=== PATIENT | female | born 1970 | race Caucasian/White ===

== ENCOUNTER 2017-10-14 13:01 | Emergency (ER) | payer MEDICAID ==
[~2017-10-14] VITALS: Ht 193859 cm; Wt 104.9 kg
[~2017-10-14 13:01] MED LIST: NO HOME MEDS
[2017-10-14 14:33] LABS: BASOPHILS # (AUTO) 0.2 X10'3 (0-0.2); BASOPHILS % (AUTO) 1.3 % (0-1); EOSINOPHILS # (AUTO) 0.1 X10'3 (0-0.9); EOSINOPHILS % (AUTO) 1.1 % (0-6); HEMATOCRIT 42.2 % (35.0-45.0); HEMOGLOBIN 14.7 g/dl (12.0-16.0); LYMPHOCYTES # (AUTO) 2.8 X10'3 (1.1-4.8); LYMPHOCYTES % (AUTO) 22.8 % (21-51); MEAN CORPUSCULAR HGB CONC 34.9 % (33.0-36.5); MEAN PLATELET VOLUME 7.9 FL (7.4-10.4); MONOCYTES % (AUTO) 8.6 % (2-12); NEUTROPHILS % (AUTO) 66.2 % (42-75); PLATELET COUNT 284 X10'3 (140-440); RED CELL DISTRIBUTION WIDTH 13.3 % (11.5-14.5); WHITE BLOOD COUNT 12.1 X10'3 (4.5-11.0)
[2017-10-14] MEDS ORDERED: normal saline 1000ML IV soln IVB ONE (14:35)
[2017-10-14 14:47] LABS: PARTIAL THROMBOPLASTIN TIME 27 SECONDS (22-32); PROTHROMBIN TIME 10.6 SECONDS (9.0-12.0)
[2017-10-14 14:57] LABS: ALANINE AMINOTRANSFERASE 24 U/L (12-78); ALBUMIN 4.1 G/DL (3.4-5.0); ALBUMIN/GLOBULIN RATIO 1.2 (1.1-1.5); ALKALINE PHOSPHATASE 71 IU/L (46-116); ANION GAP 13 (8-16); ASPARTATE AMINO TRANSFERASE 20 U/L (10-37); BILIRUBIN,TOTAL 2.4 MG/DL (0.1-1.0); BLOOD UREA NITROGEN 13 MG/DL (7-18); CALCIUM 8.8 MG/DL (8.5-10.1); CHLORIDE 103 MMOL/L (99-107); CREATININE 1.18 MG/DL (0.40-0.90); GLUCOSE 113 MG/DL (70-104); POTASSIUM 3.3 MMOL/L (3.5-5.1); SODIUM 142 MMOL/L (135-145); TOTAL CARBON DIOXIDE 26.2 MMOL/L (24-32); TOTAL PROTEIN 7.5 G/DL (6.4-8.2); eGFR 50 ML/MIN
[2017-10-14 15:11] LABS: ETHANOL < 0.010 GM/DL (0.0-0.010)
[2017-10-14] MEDS ORDERED: LORazepam 2 mg/ml vial IV ONE (15:20)
[2017-10-14] MEDS ORDERED: LORazepam 1 MG tablet PO ONE (15:30)
[2017-10-14 16:18] LABS: URINE HCG NEGATIVE (NEG)
[2017-10-14 16:20] LABS: CLARITY,URINE Cloudy (Clear); COLOR,URINE Dark Yellow (Yellow); GLUCOSE, URINE Negative (Neg); KETONES,URINE 40 mg/dl (Neg); LEUKOCYTE ESTERASE ,URINE Small (Neg); NITRITES, URINE Negative (Neg); OCCULT BLOOD,URINE Trace (Neg); PROTEIN,URINE Trace mg/dl (Neg)
[2017-10-14 16:26] LABS: UA COLLECTION TYPE CLN CATCH MIDSTREAM
[2017-10-14 16:30] LABS: BACTERIA,URINE 1+ /HPF (Neg); HYALINE CASTS 0-3 /LPF (NEGATIVE); MUCUS STRANDS MODERATE /LPF (Neg); RBC,URINE 0-2 /HPF (0-2); SQUAMOUS EPITHELIAL CELL,UR MODERATE /LPF (FEW); URINE AMPHETAMINE SCREEN POSITIVE (Neg); URINE BARBITUATE SCREEN NEGATIVE (Neg); URINE BENZODIAZEPINES SCREEN NEGATIVE (Neg); URINE CANNABINOID SCREEN POSITIVE (Neg); URINE COCAINE SCREEN NEGATIVE (Neg); URINE METHADONE SCREEN NEGATIVE (Neg); URINE OPIATE SCREEN NEGATIVE (Neg); URINE PHENCYCLIDINE SCREEN NEGATIVE (Neg); WBC,URINE 0-4 /HPF (0-4)
[2017-10-14 16:31] LABS: COARSE GRANULAR CAST 0-3 /LPF (NEGATIVE)
[2017-10-14] MEDS ORDERED: ziprasidone 20mg capsule PO PRN (20:35)
[2017-10-14] MEDS ORDERED: LORazepam 2 mg/ml vial IM PRN (20:35)
[2017-10-14] MEDS ORDERED: ziprasidone IM 20mg inj **IM only IM PRN (20:35)
[2017-10-14] MEDS: quetiapine 100mg tablet PO SCH (21:15)
[2017-10-15] MEDS: nitrofuran/nitrofuran macrocrysal 100 MG capsule PO SCH ×2 (11:50→20:46)
[2017-10-15] MEDS: quetiapine 100mg tablet PO SCH (20:46)
[2017-10-16] MEDS: nitrofuran/nitrofuran macrocrysal 100 MG capsule PO SCH ×2 (07:43→20:00)
[2017-10-16] MEDS: LORazepam 1 MG tablet PO PRN (12:12)
[2017-10-16] MEDS: quetiapine 100mg tablet PO SCH (20:32)
[2017-10-17] MEDS: LORazepam 1 MG tablet PO PRN (05:17)
[2017-10-17] MEDS: nitrofuran/nitrofuran macrocrysal 100 MG capsule PO SCH (08:00)
[2017-10-17 17:59] VITALS: BP 102/48
== END 2017-10-17 20:05 ==
LOC: ER 13:02
DX: F31.9 Bipolar disorder, unspecified (principal); F15.90 Other stimulant use, unspecified, uncomplicated; F20.9 Schizophrenia, unspecified; F12.90 Cannabis use, unspecified, uncomplicated; Z60.2 Problems related to living alone; Z59.0 Homelessness; Z90.49 Acquired absence of other specified parts of digestive tract; Z90.710 Acquired absence of both cervix and uterus
CPT/HCPCS: 36415; 71045; 80053; 80305; 80320; 81001; 81025; 83735; 84145; 84443; 85025; 85610; 85730; 87088; 93005; 99285; J2060; J3486; 96372

== ENCOUNTER 2017-10-30 21:50 | Emergency (ER) | payer MEDICAID ==
[~2017-10-30] VITALS: Ht 180.3 cm; Wt 109.8 kg
[2017-10-30] MEDS ORDERED: LORazepam 1 MG tablet PO ONE (22:20)
[2017-10-30 22:43] VITALS: BP 145/80
== END 2017-10-30 22:45 | disposition home or self-care (01) ==
LOC: ER 21:50
DX: F41.9 Anxiety disorder, unspecified (principal); F31.9 Bipolar disorder, unspecified; F20.9 Schizophrenia, unspecified; G89.29 Other chronic pain; F12.10 Cannabis abuse, uncomplicated; Z90.49 Acquired absence of other specified parts of digestive tract; Z90.710 Acquired absence of both cervix and uterus; Z87.442 Personal history of urinary calculi; Z60.2 Problems related to living alone; Z59.0 Homelessness; Z88.8 Allergy status to other drugs, medicaments and biological substances
CPT/HCPCS: 99284

== ENCOUNTER 2017-11-03 18:48 | Emergency (ER) | payer MEDICAID ==
[~2017-11-03] VITALS: Ht 177.8 cm; Wt 104.5 kg
[2017-11-03 20:23] VITALS: BP 132/69
[2017-11-03 20:24] LABS: URINE AMPHETAMINE SCREEN POSITIVE (Neg); URINE BARBITUATE SCREEN NEGATIVE (Neg); URINE BENZODIAZEPINES SCREEN NEGATIVE (Neg); URINE CANNABINOID SCREEN POSITIVE (Neg); URINE COCAINE SCREEN NEGATIVE (Neg); URINE METHADONE SCREEN NEGATIVE (Neg); URINE OPIATE SCREEN NEGATIVE (Neg); URINE PHENCYCLIDINE SCREEN NEGATIVE (Neg)
[2017-11-03 20:25] LABS: CLARITY,URINE CLEAR (Clear); COLOR,URINE YELLOW (Yellow); GLUCOSE, URINE NEGATIVE (Neg); KETONES,URINE NEGATIVE (Neg); LEUKOCYTE ESTERASE ,URINE NEGATIVE (Neg); NITRITES, URINE NEGATIVE (Neg); OCCULT BLOOD,URINE NEGATIVE (Neg); PH,URINE 5.5 (4.8-8.0); PROTEIN,URINE NEGATIVE (Neg); UA COLLECTION TYPE CLN CATCH MIDSTREAM; UROBILINOGEN,URINE 0.2 E.U/dL (0.2-1.0)
== END 2017-11-03 20:25 | disposition left against medical advice (07) ==
LOC: ER 18:49
DX: F41.9 Anxiety disorder, unspecified (principal); Z53.21 Procedure and treatment not carried out due to patient leaving prior to being seen by health care provider
CPT/HCPCS: 80305; 81003; 99281

== ENCOUNTER 2017-11-20 09:25 | Emergency (ER) | payer MEDICAID ==
[~2017-11-20] VITALS: Ht 177.8 cm; Wt 105.9 kg
[2017-11-20 09:35] VITALS: BP 118/85
[2017-11-20] MEDS ORDERED: ACET-812 PO (10:13)
[2017-11-20] MEDS ORDERED: ONDA4TAB9 SL (10:13)
[2017-11-20] MEDS ORDERED: acetaminophen 325mg tablet PO ONE (10:15)
[2017-11-20] MEDS ORDERED: ondansetron 4mg rapidly disintigrating tab PO ONE (10:15)
== END 2017-11-20 10:30 | disposition home or self-care (01) ==
LOC: ER 09:26
DX: R51 Headache (principal); R11.0 Nausea; G89.29 Other chronic pain; F12.10 Cannabis abuse, uncomplicated; Z87.442 Personal history of urinary calculi; Z90.49 Acquired absence of other specified parts of digestive tract; Z90.710 Acquired absence of both cervix and uterus; Z56.0 Unemployment, unspecified; Z60.2 Problems related to living alone; Z88.8 Allergy status to other drugs, medicaments and biological substances; Z79.899 Other long term (current) drug therapy; Z59.0 Homelessness
CPT/HCPCS: 99283

== ENCOUNTER 2017-12-07 15:00 | Emergency (ER) | payer MEDICAID ==
[~2017-12-07] VITALS: Ht 180.3 cm; Wt 79.2 kg
[~2017-12-07 15:00] MED LIST changes: +ACET-812 PO
[2017-12-07 15:16] VITALS: BP 129/74
== END 2017-12-07 15:50 | disposition home or self-care (01) ==
LOC: ER 15:00
DX: Z00.8 Encounter for other general examination (principal); G89.29 Other chronic pain; F12.10 Cannabis abuse, uncomplicated; Z88.8 Allergy status to other drugs, medicaments and biological substances; Z60.2 Problems related to living alone; Z59.0 Homelessness
CPT/HCPCS: 99281

== ENCOUNTER 2018-01-19 07:56 | Emergency (ER) | payer MEDICAID ==
[~2018-01-19] VITALS: Ht 172.7 cm; Wt 80.0 kg
[~2018-01-19 07:56] MED LIST changes: -ACET-812 PO
[2018-01-19] MEDS ORDERED: metoclopramide 5 mg/ml inj IV ONE (08:05)
[2018-01-19] MEDS ORDERED: LORazepam 2 mg/ml vial IV ONE (08:05)
[2018-01-19] MEDS ORDERED: normal saline 1000ML IV soln IVB ONE (08:05)
[2018-01-19] MEDS ORDERED: SUMAtriptan succ. 6 MG/0.5ml vial SQ ONE (08:55)
[2018-01-19] MEDS ORDERED: ketorolac trometh. 30mg/ml inj. IV ONE (08:55)
[2018-01-19 08:57] VITALS: BP 104/66
== END 2018-01-19 09:47 | disposition home or self-care (01) ==
LOC: ER 07:56
DX: G43.909 Migraine, unspecified, not intractable, without status migrainosus (principal); G89.29 Other chronic pain; F12.10 Cannabis abuse, uncomplicated; Z87.442 Personal history of urinary calculi; Z90.49 Acquired absence of other specified parts of digestive tract; Z90.710 Acquired absence of both cervix and uterus; Z60.2 Problems related to living alone; Z59.0 Homelessness; Z88.8 Allergy status to other drugs, medicaments and biological substances
CPT/HCPCS: 70450; 96361; 96372; 96374; 96375; 99284; J1885; J2060; J2765; J3030; J7030

== ENCOUNTER 2018-01-30 14:07 | Emergency (ER) | payer MEDICAID ==
[~2018-01-30] VITALS: Ht 177.8 cm; Wt 87.5 kg
[2018-01-30 14:09] VITALS: BP 122/46
== END 2018-01-30 15:13 | disposition left against medical advice (07) ==
LOC: ER 14:07
DX: R52 Pain, unspecified (principal); Z53.21 Procedure and treatment not carried out due to patient leaving prior to being seen by health care provider

== ENCOUNTER 2018-01-30 16:47 | Emergency (ER) | payer MEDICAID ==
[~2018-01-30] VITALS: Ht 177.8 cm; Wt 87.3 kg
[2018-01-30 16:52] VITALS: BP 130/89
== END 2018-01-30 17:19 | disposition home or self-care (01) ==
LOC: ER 16:47
DX: F41.9 Anxiety disorder, unspecified (principal); G89.29 Other chronic pain; F31.9 Bipolar disorder, unspecified; F20.9 Schizophrenia, unspecified; F12.90 Cannabis use, unspecified, uncomplicated; Z59.0 Homelessness; Z90.49 Acquired absence of other specified parts of digestive tract; Z87.442 Personal history of urinary calculi; Z90.710 Acquired absence of both cervix and uterus; Z88.8 Allergy status to other drugs, medicaments and biological substances
CPT/HCPCS: 99284

== ENCOUNTER 2018-02-25 00:33 | Emergency (ER) | payer MEDICAID ==
[~2018-02-25] VITALS: Ht 177.8 cm; Wt 104.5 kg
[2018-02-25 00:34] VITALS: BP 118/91
== END 2018-02-25 00:57 | disposition left against medical advice (07) ==
LOC: ER 00:33
DX: G43.909 Migraine, unspecified, not intractable, without status migrainosus (principal); F17.200 Nicotine dependence, unspecified, uncomplicated; F12.90 Cannabis use, unspecified, uncomplicated; G89.29 Other chronic pain; Z90.49 Acquired absence of other specified parts of digestive tract; Z90.710 Acquired absence of both cervix and uterus; Z88.8 Allergy status to other drugs, medicaments and biological substances; Z79.899 Other long term (current) drug therapy; Z60.2 Problems related to living alone; Z59.0 Homelessness
CPT/HCPCS: 99281

== ENCOUNTER 2018-03-07 18:36 | Emergency (ER) | payer MEDICAID ==
[~2018-03-07] VITALS: Ht 1686.6 cm; Wt 95.5 kg
[2018-03-07 20:42] LABS: BASOPHILS # (AUTO) 0.1 X10'3 (0-0.2); BASOPHILS % (AUTO) 0.9 % (0-1); EOSINOPHILS # (AUTO) 0.2 X10'3 (0-0.9); EOSINOPHILS % (AUTO) 1.8 % (0-6); HEMATOCRIT 42.1 % (35.0-45.0); HEMOGLOBIN 14.7 g/dl (12.0-16.0); LYMPHOCYTES # (AUTO) 3.1 X10'3 (1.1-4.8); LYMPHOCYTES % (AUTO) 35.2 % (21-51); MEAN CORPUSCULAR HEMOGLOBIN 30.4 PG (27.0-31.0); MEAN CORPUSCULAR HGB CONC 34.9 % (33.0-36.5); MEAN CORPUSCULAR VOLUME 87.2 FL (78-98); MEAN PLATELET VOLUME 7.8 FL (7.4-10.4); MONOCYTES % (AUTO) 10.7 % (2-12); NEUTROPHILS # (AUTO) 4.6 X10'3 (1.8-7.7); NEUTROPHILS % (AUTO) 51.4 % (42-75); PLATELET COUNT 311 X10'3 (140-440); RED BLOOD COUNT 4.82 X10'6 (4.20-5.60); RED CELL DISTRIBUTION WIDTH 13.7 % (11.5-14.5); WHITE BLOOD COUNT 8.9 X10'3 (4.5-11.0)
[2018-03-07 20:56] LABS: ALANINE AMINOTRANSFERASE 27 U/L (12-78); ALBUMIN/GLOBULIN RATIO 1.2 (1.1-1.5); ALKALINE PHOSPHATASE 69 IU/L (46-116); ANION GAP 11 (8-16); ASPARTATE AMINO TRANSFERASE 27 U/L (10-37); BLOOD UREA NITROGEN 19 MG/DL (7-18); CHLORIDE 103 MMOL/L (99-107); CREATININE 0.95 MG/DL (0.40-0.90); GLUCOSE 108 MG/DL (70-104); POTASSIUM 3.2 MMOL/L (3.5-5.1); SODIUM 142 MMOL/L (135-145); TOTAL PROTEIN 7.3 G/DL (6.4-8.2); eGFR 64 ML/MIN
[2018-03-07 21:06] LABS: ACETAMINOPHEN < 2.0 UG/ML (10-30); ETHANOL < 0.010 GM/DL (0.0-0.010)
[2018-03-08] MEDS ORDERED: ziprasidone 20mg capsule PO PRN (01:05)
[2018-03-08] MEDS ORDERED: LORazepam 2 mg/ml vial IM ONE (07:15)
[2018-03-08] MEDS: ziprasidone IM 20mg inj **IM only IM PRN ×2 (07:34→19:48)
[2018-03-08 17:10] LABS: URINE HCG NEGATIVE (NEG)
[2018-03-08 17:12] LABS: CLARITY,URINE CLEAR (Clear); COLOR,URINE YELLOW (Yellow); GLUCOSE, URINE NEGATIVE (Neg); KETONES,URINE NEGATIVE (Neg); LEUKOCYTE ESTERASE ,URINE NEGATIVE (Neg); NITRITES, URINE NEGATIVE (Neg); OCCULT BLOOD,URINE TRACE-INTACT (Neg); PH,URINE 5.5 (4.8-8.0); PROTEIN,URINE NEGATIVE (Neg); UROBILINOGEN,URINE 0.2 E.U/dL (0.2-1.0)
[2018-03-08 17:14] LABS: UA COLLECTION TYPE CLN CATCH MIDSTREAM
[2018-03-08 17:17] LABS: MUCUS STRANDS MANY /LPF (Neg); SQUAMOUS EPITHELIAL CELL,UR MANY /LPF (FEW); WBC,URINE 0-4 /HPF (0-4)
[2018-03-08 17:18] LABS: CAL OXALATE CRYSTALS 1+ /HPF (NEGATIVE)
[2018-03-08 17:19] LABS: BACTERIA,URINE FEW /HPF (Neg); RBC,URINE 0-2 /HPF (0-2)
[2018-03-08 17:23] LABS: URINE AMPHETAMINE SCREEN POSITIVE (Neg); URINE BARBITUATE SCREEN NEGATIVE (Neg); URINE BENZODIAZEPINES SCREEN NEGATIVE (Neg); URINE CANNABINOID SCREEN POSITIVE (Neg); URINE COCAINE SCREEN NEGATIVE (Neg); URINE METHADONE SCREEN NEGATIVE (Neg); URINE OPIATE SCREEN NEGATIVE (Neg); URINE PHENCYCLIDINE SCREEN NEGATIVE (Neg)
[2018-03-09] MEDS: ziprasidone IM 20mg inj **IM only IM PRN ×2 (08:11→20:18)
[2018-03-10] MEDS: ziprasidone IM 20mg inj **IM only IM PRN ×2 (08:08→20:09)
[2018-03-11] MEDS ORDERED: acetaminophen 325mg tablet PO PRN (06:45)
[2018-03-11] MEDS: ziprasidone IM 20mg inj **IM only IM PRN (07:03)
[2018-03-11] MEDS ORDERED: OLANZapine 5mg rapidly disint. tablet PO PRN (09:40)
[2018-03-11] MEDS ORDERED: aripiprazole 5mg tablet PO SCH (09:40)
[2018-03-11] MEDS ORDERED: OLANZapine **IM** 10 mg inj. IM PRN (09:40)
[2018-03-11 18:02] VITALS: BP 103/55
== END 2018-03-11 19:27 | disposition home or self-care (01) ==
LOC: ER 18:36
DX: F32.9 Major depressive disorder, single episode, unspecified (principal); R45.851 Suicidal ideations; F12.90 Cannabis use, unspecified, uncomplicated; F15.90 Other stimulant use, unspecified, uncomplicated; F41.9 Anxiety disorder, unspecified; F20.9 Schizophrenia, unspecified; G89.29 Other chronic pain; G43.909 Migraine, unspecified, not intractable, without status migrainosus; Z88.8 Allergy status to other drugs, medicaments and biological substances; Z90.49 Acquired absence of other specified parts of digestive tract; Z90.710 Acquired absence of both cervix and uterus; Z59.0 Homelessness; Z60.2 Problems related to living alone
CPT/HCPCS: 36415; 80053; 80305; 80320; 80329; 81001; 81025; 84443; 85025; 96372; 99285; J2060; J3486

== ENCOUNTER 2018-05-27 09:39 | Emergency (ER) | payer MEDICAID ==
[~2018-05-27] VITALS: Ht 177.8 cm; Wt 86.4 kg
[2018-05-27] MEDS ORDERED: SUMAtriptan succ. 6 MG/0.5ml vial SQ ONE (09:55)
[2018-05-27] MEDS ORDERED: ondansetron 4mg rapidly disintigrating tab PO ONE (09:55)
[2018-05-27] MEDS ORDERED: diphenhydrAMINE 50 mg/ml inj IM ONE (09:55)
[2018-05-27 10:56] VITALS: BP 142/84
== END 2018-05-27 10:55 | disposition home or self-care (01) ==
LOC: ER 09:39
DX: R51 Headache (principal); G89.29 Other chronic pain; F12.90 Cannabis use, unspecified, uncomplicated; F15.90 Other stimulant use, unspecified, uncomplicated; Z90.49 Acquired absence of other specified parts of digestive tract; Z90.710 Acquired absence of both cervix and uterus; Z98.890 Other specified postprocedural states; Z60.2 Problems related to living alone; Z59.0 Homelessness; Z88.8 Allergy status to other drugs, medicaments and biological substances
CPT/HCPCS: 96372; 99284; J1200; J3030

== ENCOUNTER 2018-06-09 09:44 | Emergency (ER) | payer MEDICAID ==
[~2018-06-09] VITALS: Ht 177.8 cm; Wt 113.6 kg
[2018-06-09 09:52] VITALS: BP 125/76
[2018-06-09] MEDS ORDERED: ibuprofen tablet 400 MG TABLET PO ONE (10:00)
[2018-06-09] MEDS ORDERED: IBUP-1986 PO (10:01)
== END 2018-06-09 10:29 | disposition home or self-care (01) ==
LOC: ER 09:45
DX: M79.10 Myalgia, unspecified site (principal); G43.909 Migraine, unspecified, not intractable, without status migrainosus; G89.29 Other chronic pain; F12.90 Cannabis use, unspecified, uncomplicated; F15.90 Other stimulant use, unspecified, uncomplicated; F17.210 Nicotine dependence, cigarettes, uncomplicated; Z90.49 Acquired absence of other specified parts of digestive tract; Z90.710 Acquired absence of both cervix and uterus; Z88.8 Allergy status to other drugs, medicaments and biological substances; Z79.899 Other long term (current) drug therapy; Z60.2 Problems related to living alone; Z59.0 Homelessness
CPT/HCPCS: 99282

== ENCOUNTER 2018-07-21 13:38 | Emergency (ER) | payer MEDICAID ==
[~2018-07-21] VITALS: Ht 177.8 cm; Wt 98.1 kg
[~2018-07-21 13:38] MED LIST changes: +IBUP-1986 PO
[2018-07-21 13:53] VITALS: BP 132/85
[2018-07-21] MEDS ORDERED: OLAN5TAB3 PO (14:24)
[2018-07-21] MEDS ORDERED: ONDA8TAB9 PO (14:24)
== END 2018-07-21 15:19 | disposition home or self-care (01) ==
LOC: ER 13:38
DX: F20.9 Schizophrenia, unspecified (principal); Z76.0 Encounter for issue of repeat prescription; G43.909 Migraine, unspecified, not intractable, without status migrainosus; G89.29 Other chronic pain; F12.90 Cannabis use, unspecified, uncomplicated; F15.90 Other stimulant use, unspecified, uncomplicated; F32.9 Major depressive disorder, single episode, unspecified; F41.9 Anxiety disorder, unspecified; Z88.8 Allergy status to other drugs, medicaments and biological substances; Z79.899 Other long term (current) drug therapy; Z90.49 Acquired absence of other specified parts of digestive tract; Z90.710 Acquired absence of both cervix and uterus; Z60.2 Problems related to living alone; Z59.0 Homelessness
CPT/HCPCS: 99283

== ENCOUNTER → 2018-08-03 | Emergency (ER) | payer MEDICAID ==
[~2018-08-03] MED LIST changes: +OLAN5TAB3 PO; +ONDA8TAB9 PO
== END | disposition left against medical advice (07) ==
LOC: ER 07:51
DX: S30.0XXA Contusion of lower back and pelvis, initial encounter (principal); R10.9 Unspecified abdominal pain; M79.605 Pain in left leg; M79.604 Pain in right leg; R51 Headache; G89.29 Other chronic pain; F12.90 Cannabis use, unspecified, uncomplicated; F15.90 Other stimulant use, unspecified, uncomplicated; Z90.49 Acquired absence of other specified parts of digestive tract; Z90.710 Acquired absence of both cervix and uterus; Z98.890 Other specified postprocedural states; Z60.2 Problems related to living alone; Z59.0 Homelessness; Z88.8 Allergy status to other drugs, medicaments and biological substances; Z79.899 Other long term (current) drug therapy; T74.21XA Adult sexual abuse, confirmed, initial encounter; Y93.89 Activity, other specified; Y92.89 Other specified places as the place of occurrence of the external cause; Y99.8 Other external cause status
CPT/HCPCS: 99283

== ENCOUNTER 2018-08-11 15:26 | Emergency (ER) | payer MEDICAID | END 2018-08-11 18:19 | disposition left against medical advice (07) | LOC: ER 15:27 | DX: R25.1 Tremor, unspecified (principal); Z53.21 Procedure and treatment not carried out due to patient leaving prior to being seen by health care provider ==

== ENCOUNTER 2018-09-09 06:43 | Emergency (ER) | payer MEDICAID ==
[~2018-09-09] VITALS: Ht 177.8 cm; Wt 100.0 kg
[2018-09-09 06:50] VITALS: BP 120/93
--- NOTE | 2018-09-09 07:10 | NUR ---
PT REQUESTING DIAPER DUE TO INCONTINENCE. BRING COMMODE INTO ROOM AND PT IS TAKING OFF CLOTHES AND GETTING INTO A GOWN.
[2018-09-09] MEDS ORDERED: butalbital/acetaminophen/caffeine (Fioricet) tablet PO ONE (07:15)
--- NOTE | 2018-09-09 08:00 | NUR ---
PT REFUSES HEADACHE MEDICATION, NOTIFY , PT REQUESTING TYLENOL ONLY. VERBAL ORDER TO ORDER.
[2018-09-09] MEDS ORDERED: acetaminophen 325mg tablet PO ONE (08:05)
[2018-09-09 08:13] LABS: CLARITY,URINE SLIGHTLY CLOUDY (Clear); COLOR,URINE YELLOW (Yellow); GLUCOSE, URINE NEGATIVE (Neg); KETONES,URINE NEGATIVE (Neg); LEUKOCYTE ESTERASE ,URINE SMALL (Neg); NITRITES, URINE NEGATIVE (Neg); OCCULT BLOOD,URINE NEGATIVE (Neg); PH,URINE 5.5 (4.8-8.0); PROTEIN,URINE NEGATIVE (Neg); URINE HCG NEGATIVE (NEG); UROBILINOGEN,URINE 0.2 E.U/dL (0.2-1.0)
[2018-09-09 08:18] LABS: BASOPHILS % (AUTO) 0.7 % (0-1); EOSINOPHILS # (AUTO) 0.1 X10'3 (0-0.9); EOSINOPHILS % (AUTO) 2.2 % (0-6); HEMATOCRIT 40.2 % (35.0-45.0); HEMOGLOBIN 13.4 g/dl (12.0-16.0); LYMPHOCYTES # (AUTO) 1.7 X10'3 (1.1-4.8); MEAN CORPUSCULAR HEMOGLOBIN 29.5 PG (27.0-31.0); MEAN CORPUSCULAR HGB CONC 33.3 % (33.0-36.5); MEAN CORPUSCULAR VOLUME 88.6 FL (78-98); MEAN PLATELET VOLUME 8.3 FL (7.4-10.4); MONOCYTES # (AUTO) 0.7 X10'3 (0-0.9); MONOCYTES % (AUTO) 10.3 % (2-12); NEUTROPHILS # (AUTO) 3.9 X10'3 (1.8-7.7); NEUTROPHILS % (AUTO) 60.8 % (42-75); PLATELET COUNT 247 X10'3 (140-440); RED BLOOD COUNT 4.54 X10'6 (4.20-5.60); RED CELL DISTRIBUTION WIDTH 14.3 % (11.5-14.5); WHITE BLOOD COUNT 6.4 X10'3 (4.5-11.0)
[2018-09-09 08:25] LABS: ALANINE AMINOTRANSFERASE 27 U/L (12-78); ALBUMIN 3.9 G/DL (3.4-5.0); ALBUMIN/GLOBULIN RATIO 1.1 (1.1-1.5); ALKALINE PHOSPHATASE 72 IU/L (46-116); ANION GAP 10 (8-16); ASPARTATE AMINO TRANSFERASE 20 U/L (10-37); BILIRUBIN,TOTAL 1.7 MG/DL (0.1-1.0); BLOOD UREA NITROGEN 6 MG/DL (7-18); BUN/CREATININE RATIO 8.2 (6.6-38.0); CALCIUM 8.4 MG/DL (8.5-10.1); CHLORIDE 101 MMOL/L (99-107); CREATININE 0.73 MG/DL (0.40-0.90); ETHANOL < 0.010 GM/DL (0.0-0.010); GLUCOSE 93 MG/DL (70-104); SODIUM 140 MMOL/L (135-145); TOTAL CARBON DIOXIDE 28.6 MMOL/L (24-32); TOTAL PROTEIN 7.4 G/DL (6.4-8.2); eGFR 86 ML/MIN
[2018-09-09 08:28] LABS: URINE AMPHETAMINE SCREEN POSITIVE (Neg); URINE BARBITUATE SCREEN NEGATIVE (Neg); URINE BENZODIAZEPINES SCREEN NEGATIVE (Neg); URINE CANNABINOID SCREEN POSITIVE (Neg); URINE COCAINE SCREEN NEGATIVE (Neg); URINE METHADONE SCREEN NEGATIVE (Neg); URINE OPIATE SCREEN NEGATIVE (Neg); URINE PHENCYCLIDINE SCREEN NEGATIVE (Neg)
[2018-09-09] MEDS ORDERED: potassium Cl 20 mEq SR tablet PO STA (08:41)
[2018-09-09 08:50] LABS: UA COLLECTION TYPE NON-SPECIFIED
[2018-09-09 08:51] LABS: BACTERIA,URINE FEW /HPF (Neg); MUCUS STRANDS FEW /LPF (Neg); RBC,URINE 0-2 /HPF (0-2); SQUAMOUS EPITHELIAL CELL,UR MANY /LPF (FEW); WBC,URINE 0-4 /HPF (0-4)
[2018-09-09] MEDS ORDERED: LORazepam 2 mg/ml vial IM ONE (09:35)
[2018-09-09] MEDS ORDERED: diphenhydrAMINE 50 mg/ml inj IM ONE (09:35)
--- NOTE | 2018-09-09 12:20 | NUR ---
Patient given a sack lunch and attends.
== END 2018-09-09 12:43 | disposition home or self-care (01) ==
LOC: ER 06:43
DX: F32.9 Major depressive disorder, single episode, unspecified (principal); F19.10 Other psychoactive substance abuse, uncomplicated; G43.909 Migraine, unspecified, not intractable, without status migrainosus; G89.29 Other chronic pain; F41.9 Anxiety disorder, unspecified; F20.9 Schizophrenia, unspecified; F12.90 Cannabis use, unspecified, uncomplicated; F15.90 Other stimulant use, unspecified, uncomplicated; Z59.0 Homelessness; Z90.49 Acquired absence of other specified parts of digestive tract; Z90.710 Acquired absence of both cervix and uterus; Z88.5 Allergy status to narcotic agent
CPT/HCPCS: 36415; 80053; 80305; 80320; 81001; 81025; 85025; 96372; 99284; J1200; J2060; 99283

== ENCOUNTER 2019-06-09 08:11 | Emergency (ER) | payer MEDICAID ==
[~2019-06-09] VITALS: Ht 177.8 cm; Wt 80.0 kg
[2019-06-09 08:13] VITALS: BP 113/70
== END 2019-06-09 08:57 | disposition left against medical advice (07) ==
LOC: ER 08:11
DX: R51 Headache (principal); F15.10 Other stimulant abuse, uncomplicated; Z53.21 Procedure and treatment not carried out due to patient leaving prior to being seen by health care provider

== ENCOUNTER 2019-10-11 14:06 | Emergency (ER) | payer MEDICAID ==
[~2019-10-11] VITALS: Ht 177.8 cm; Wt 73.0 kg
[2019-10-11 14:14] VITALS: BP 114/68
== END 2019-10-11 17:02 | disposition left against medical advice (07) ==
LOC: ER 14:06
DX: F41.9 Anxiety disorder, unspecified (principal); Z53.21 Procedure and treatment not carried out due to patient leaving prior to being seen by health care provider

== ENCOUNTER 2019-12-21 15:11 | Emergency (ER) | payer MEDICAID ==
[~2019-12-21] VITALS: Ht 177.8 cm; Wt 72.8 kg
[2019-12-21 15:12] VITALS: BP 119/69
[2019-12-21] MEDS ORDERED: ondansetron 4mg rapidly disintigrating tab PO ONE (15:30)
[2019-12-21] MEDS ORDERED: ketorolac trometh. 30mg/ml inj. IM ONE (15:30)
== END 2019-12-21 15:39 | disposition home or self-care (01) ==
LOC: ER 15:11
DX: G43.909 Migraine, unspecified, not intractable, without status migrainosus (principal); G89.29 Other chronic pain; F17.210 Nicotine dependence, cigarettes, uncomplicated; F12.90 Cannabis use, unspecified, uncomplicated; F15.90 Other stimulant use, unspecified, uncomplicated; Z87.442 Personal history of urinary calculi; Z59.0 Homelessness; Z90.49 Acquired absence of other specified parts of digestive tract; Z90.710 Acquired absence of both cervix and uterus; Z88.5 Allergy status to narcotic agent
CPT/HCPCS: 96372; 99283; J1885

== ENCOUNTER 2020-02-19 16:17 | Emergency (ER) | payer MEDICAID ==
[~2020-02-19] VITALS: Ht 180.3 cm; Wt 77.7 kg
[2020-02-19 16:24] VITALS: BP 111/70
[2020-02-19] MEDS ORDERED: IBUP-1984 PO (17:20)
[2020-02-19] MEDS ORDERED: CYCL-1 PO (17:20)
[2020-02-19] MEDS ORDERED: ketorolac tromethamine 15mg/ml inj. IM ONE (17:20)
== END 2020-02-19 17:35 | disposition home or self-care (01) ==
LOC: ER 16:17
DX: M54.2 Cervicalgia (principal); R42 Dizziness and giddiness; Y09 Assault by unspecified means; G43.909 Migraine, unspecified, not intractable, without status migrainosus; G89.29 Other chronic pain; F41.9 Anxiety disorder, unspecified; F31.9 Bipolar disorder, unspecified; F20.9 Schizophrenia, unspecified; F12.90 Cannabis use, unspecified, uncomplicated; F15.90 Other stimulant use, unspecified, uncomplicated; Z87.442 Personal history of urinary calculi; Z90.49 Acquired absence of other specified parts of digestive tract; Z90.710 Acquired absence of both cervix and uterus; Z98.890 Other specified postprocedural states; Z60.2 Problems related to living alone; Z59.0 Homelessness; Z88.8 Allergy status to other drugs, medicaments and biological substances; Z79.899 Other long term (current) drug therapy
CPT/HCPCS: 96372; 99284; J1885

== ENCOUNTER 2020-03-07 14:33 | Emergency (ER) | payer MEDICAID ==
[~2020-03-07] VITALS: Ht 180.3 cm; Wt 77.3 kg
[~2020-03-07 14:33] MED LIST changes: +CYCL-1 PO
[2020-03-07 14:37] VITALS: BP 106/64
--- NOTE | 2020-03-07 15:11 | NUR ---
Patient given toothbrush, toothpaste, and mouth wash.
[2020-03-07] MEDS ORDERED: traMADol 50MG tablet PO ONE (15:20)
== END 2020-03-07 15:27 | disposition home or self-care (01) ==
LOC: ER 14:33
DX: K02.9 Dental caries, unspecified (principal); G43.909 Migraine, unspecified, not intractable, without status migrainosus; F41.9 Anxiety disorder, unspecified; F31.9 Bipolar disorder, unspecified; F20.9 Schizophrenia, unspecified; G89.29 Other chronic pain; F12.90 Cannabis use, unspecified, uncomplicated; F15.90 Other stimulant use, unspecified, uncomplicated; Z87.442 Personal history of urinary calculi; Z90.49 Acquired absence of other specified parts of digestive tract; Z90.710 Acquired absence of both cervix and uterus; Z98.890 Other specified postprocedural states; Z59.0 Homelessness; Z60.2 Problems related to living alone; Z88.8 Allergy status to other drugs, medicaments and biological substances; Z79.899 Other long term (current) drug therapy
CPT/HCPCS: 99283

== ENCOUNTER 2020-03-10 09:14 | Emergency (ER) | payer MEDICAID ==
[~2020-03-10] VITALS: Ht 180.3 cm; Wt 75.6 kg
--- NOTE | 2020-03-10 09:35 | NUR ---
provider in with pt
[2020-03-10] MEDS ORDERED: ketorolac trometh. 30mg/ml inj. IV ONE (09:40)
[2020-03-10] MEDS ORDERED: normal saline 1000ML IV soln IVB ONE (09:40)
[2020-03-10] MEDS ORDERED: LORazepam 2 mg/ml vial IV ONE (09:40)
[2020-03-10] MEDS ORDERED: SUMAtriptan 5 mg Nasal Spray NS ONE (09:40)
[2020-03-10] MEDS ORDERED: SUMAtriptan 25 MG tablet PO ONE (09:50)
[2020-03-10 11:06] VITALS: BP 105/64
== END 2020-03-10 11:07 | disposition home or self-care (01) ==
LOC: ER 09:15
DX: G43.909 Migraine, unspecified, not intractable, without status migrainosus (principal); G89.29 Other chronic pain; F41.9 Anxiety disorder, unspecified; F31.9 Bipolar disorder, unspecified; F20.9 Schizophrenia, unspecified; F12.90 Cannabis use, unspecified, uncomplicated; F15.90 Other stimulant use, unspecified, uncomplicated; Z87.442 Personal history of urinary calculi; Z90.49 Acquired absence of other specified parts of digestive tract; Z90.710 Acquired absence of both cervix and uterus; Z98.890 Other specified postprocedural states; Z60.2 Problems related to living alone; Z59.0 Homelessness; Z88.8 Allergy status to other drugs, medicaments and biological substances; Z79.899 Other long term (current) drug therapy
CPT/HCPCS: 96374; 96375; 99284; J1885; J2060; J7030

== ENCOUNTER 2020-10-17 01:14 | Emergency (ER) | payer MEDICAID, OTHER ==
[~2020-10-17] VITALS: Ht 177.8 cm; Wt 75.0 kg
[2020-10-17] MEDS ORDERED: acetaminophen 325mg tablet PO ONE (01:45)
[2020-10-17] MEDS ORDERED: diphenhydrAMINE 50 mg/ml inj IV ONE (01:45)
[2020-10-17] MEDS ORDERED: ketorolac trometh. 30mg/ml inj. IV ONE (01:45)
[2020-10-17] MEDS ORDERED: normal saline 1000ml 1,000 ML IV ONE (01:45)
[2020-10-17] MEDS ORDERED: proCHLORperazine 10 MG/2 ml inj IV ONE (01:45)
[2020-10-17 06:26] VITALS: BP 133/72
== END 2020-10-17 06:28 | disposition home or self-care (01) ==
LOC: ER 01:14
DX: G43.909 Migraine, unspecified, not intractable, without status migrainosus (principal); G89.29 Other chronic pain; F31.9 Bipolar disorder, unspecified; F41.9 Anxiety disorder, unspecified; F12.90 Cannabis use, unspecified, uncomplicated; F15.90 Other stimulant use, unspecified, uncomplicated; F20.9 Schizophrenia, unspecified; Z90.49 Acquired absence of other specified parts of digestive tract; Z90.710 Acquired absence of both cervix and uterus; Z87.442 Personal history of urinary calculi; Z60.2 Problems related to living alone; Z59.0 Homelessness; Z88.8 Allergy status to other drugs, medicaments and biological substances; Z79.899 Other long term (current) drug therapy
CPT/HCPCS: 96361; 96374; 96375; 99284; J0780; J1200; J1885; J7030; 99285

== ENCOUNTER 2021-02-21 08:28 | Emergency (ER) | payer MEDICAID ==
[~2021-02-21] VITALS: Ht 177.8 cm; Wt 82.1 kg
[2021-02-21] MEDS ORDERED: proCHLORperazine 10 MG/2 ml inj IM ONE (09:20)
[2021-02-21] MEDS ORDERED: normal saline 1000ml 1,000 ML IV ONE (09:20)
[2021-02-21] MEDS ORDERED: diphenhydrAMINE 50 mg/ml inj IM ONE (09:20)
[2021-02-21] MEDS ORDERED: ketorolac trometh. 30mg/ml inj. IM ONE (09:20)
[2021-02-21 11:26] VITALS: BP 116/85
== END 2021-02-21 11:29 | disposition home or self-care (01) ==
LOC: ER 08:29
DX: G43.909 Migraine, unspecified, not intractable, without status migrainosus (principal); G89.29 Other chronic pain; F12.90 Cannabis use, unspecified, uncomplicated; F15.90 Other stimulant use, unspecified, uncomplicated; Z87.442 Personal history of urinary calculi; Z90.49 Acquired absence of other specified parts of digestive tract; Z90.710 Acquired absence of both cervix and uterus; Z59.0 Homelessness; Z88.8 Allergy status to other drugs, medicaments and biological substances; Z79.899 Other long term (current) drug therapy
CPT/HCPCS: 96360; 96372; 99284; J0780; J1200; J1885; J7030

== ENCOUNTER 2021-03-15 08:25 | Emergency (ER) | payer SELFPAY | END 2021-03-15 09:33 | disposition left against medical advice (07) | LOC: ER 08:26 | DX: R51.9 Headache, unspecified (principal); Z53.21 Procedure and treatment not carried out due to patient leaving prior to being seen by health care provider ==

== ENCOUNTER 2021-07-28 08:44 | Emergency (ER) | payer OTHER ==
[~2021-07-28] VITALS: Ht 177.8 cm; Wt 81.4 kg
[2021-07-28 09:02] VITALS: BP 119/86
[2021-07-28] MEDS ORDERED: AZIT-83 PO (09:09)
== END 2021-07-28 09:24 | disposition home or self-care (01) ==
LOC: ER 08:45
DX: R05.9 Cough, unspecified (principal); R09.89 Other specified symptoms and signs involving the circulatory and respiratory systems; R42 Dizziness and giddiness; G43.909 Migraine, unspecified, not intractable, without status migrainosus; G89.29 Other chronic pain; F41.9 Anxiety disorder, unspecified; F31.9 Bipolar disorder, unspecified; F20.9 Schizophrenia, unspecified; F12.90 Cannabis use, unspecified, uncomplicated; F15.90 Other stimulant use, unspecified, uncomplicated; Z87.442 Personal history of urinary calculi; Z90.49 Acquired absence of other specified parts of digestive tract; Z90.710 Acquired absence of both cervix and uterus; Z98.890 Other specified postprocedural states; Z60.2 Problems related to living alone; Z59.00 Homelessness unspecified; Z88.8 Allergy status to other drugs, medicaments and biological substances; Z79.2 Long term (current) use of antibiotics; Z79.899 Other long term (current) drug therapy
CPT/HCPCS: 99283

== ENCOUNTER 2022-02-02 07:22 | Emergency (ER) | payer MEDICAID ==
[~2022-02-02] VITALS: Ht 177.8 cm; Wt 81.8 kg
--- NOTE | 2022-02-02 07:50 | NUR ---
PT AWAITING ROOM AND OBSERVED IN LOBBY STICKING FINGER DOWN THROAT MAKING HERSELF GAG INTO EMESIS BAG.
[2022-02-02 08:17] LABS: URINE HCG NEGATIVE (NEG)
[2022-02-02 08:18] LABS: CLARITY,URINE CLOUDY (Clear); COLOR,URINE YELLOW (Yellow); GLUCOSE, URINE NEGATIVE (Neg); KETONES,URINE NEGATIVE (Neg); LEUKOCYTE ESTERASE ,URINE SMALL (Neg); NITRITES, URINE NEGATIVE (Neg); OCCULT BLOOD,URINE NEGATIVE (Neg); PH,URINE 5.5 (4.8-8.0); PROTEIN,URINE NEGATIVE (Neg); UROBILINOGEN,URINE 0.2 E.U/dL (0.2-1.0)
[2022-02-02 08:21] LABS: UA COLLECTION TYPE CLN CATCH MIDSTREAM
[2022-02-02 08:34] LABS: MUCUS STRANDS MANY /LPF (Neg); SQUAMOUS EPITHELIAL CELL,UR MANY /LPF (FEW)
[2022-02-02 08:36] LABS: BACTERIA,URINE 1+ /HPF (Neg); RBC,URINE 0-2 /HPF (0-2); WBC,URINE 0-4 /HPF (0-4)
[2022-02-02] MEDS ORDERED: SUMA25TA9 PO (09:57)
[2022-02-02 10:17] VITALS: BP 106/68
== END 2022-02-02 10:19 | disposition home or self-care (01) ==
LOC: ER 07:23
DX: G43.909 Migraine, unspecified, not intractable, without status migrainosus (principal); M54.2 Cervicalgia; R42 Dizziness and giddiness; G89.29 Other chronic pain; F41.9 Anxiety disorder, unspecified; F31.9 Bipolar disorder, unspecified; F20.9 Schizophrenia, unspecified; F17.200 Nicotine dependence, unspecified, uncomplicated; F12.90 Cannabis use, unspecified, uncomplicated; F15.90 Other stimulant use, unspecified, uncomplicated; Z87.442 Personal history of urinary calculi; Z90.49 Acquired absence of other specified parts of digestive tract; Z90.710 Acquired absence of both cervix and uterus; Z60.2 Problems related to living alone; Z59.00 Homelessness unspecified; Z88.8 Allergy status to other drugs, medicaments and biological substances; Z79.899 Other long term (current) drug therapy
CPT/HCPCS: 81001; 81025; 99283

== ENCOUNTER 2023-07-17 03:44 | Emergency (ER) | payer MEDICAID ==
[~2023-07-17] VITALS: Ht 177.8 cm; Wt 90.8 kg
[~2023-07-17 03:44] MED LIST changes: +SUMA25TA9 PO
[2023-07-17] MEDS ORDERED: acetaminophen 325mg tablet PO ONE (04:10)
[2023-07-17] MEDS ORDERED: ketorolac tromethamine 15mg/ml inj. IM ONE (04:10)
[2023-07-17 04:52] VITALS: BP 125/68; PULSE 60; RESP 16; TEMP 98.6; O2SAT 99
== END 2023-07-17 06:02 | disposition home or self-care (01) ==
LOC: ER 03:45
DX: G43.909 Migraine, unspecified, not intractable, without status migrainosus (principal); R31.9 Hematuria, unspecified; F20.9 Schizophrenia, unspecified; G89.29 Other chronic pain; M54.9 Dorsalgia, unspecified; Z88.8 Allergy status to other drugs, medicaments and biological substances; Z79.899 Other long term (current) drug therapy
CPT/HCPCS: 96372; 99283; J1885

== ENCOUNTER 2023-08-14 09:33 | Emergency (ER) | payer MEDICAID ==
[~2023-08-14] VITALS: Ht 177.8 cm; Wt 91.0 kg
[2023-08-14 09:47] VITALS: BP 113/56; PULSE 84; TEMP 97.9; O2SAT 98
[2023-08-14] MEDS ORDERED: IBUP-1984 PO (10:29)
[2023-08-14] MEDS ORDERED: diphenhydrAMINE 25mg capsule PO ONE (10:30)
[2023-08-14] MEDS ORDERED: ketorolac trometh. 30mg/ml inj. IM ONE (10:30)
[2023-08-14 10:37] VITALS: RESP 17
== END 2023-08-14 10:48 | disposition home or self-care (01) ==
LOC: ER 09:33
DX: G43.909 Migraine, unspecified, not intractable, without status migrainosus (principal); M54.2 Cervicalgia; G89.29 Other chronic pain; F12.90 Cannabis use, unspecified, uncomplicated; F15.90 Other stimulant use, unspecified, uncomplicated; Z87.442 Personal history of urinary calculi; Z90.710 Acquired absence of both cervix and uterus; Z79.899 Other long term (current) drug therapy; Z88.8 Allergy status to other drugs, medicaments and biological substances
CPT/HCPCS: 96372; 99283; J1885; Q0163

== ENCOUNTER 2023-09-06 07:59 | Emergency (ER) | payer MEDICAID ==
[~2023-09-06] VITALS: Ht 177.8 cm; Wt 86.6 kg
[~2023-09-06 07:59] MED LIST changes: +IBUP-1984 PO
[2023-09-06 08:05] VITALS: BP 118/60; PULSE 86; TEMP 97.5; O2SAT 94
[2023-09-06 08:35] VITALS: RESP 18
== END 2023-09-06 09:51 | disposition left against medical advice (07) ==
LOC: ER 08:00
DX: G43.909 Migraine, unspecified, not intractable, without status migrainosus (principal)
CPT/HCPCS: 99281

== ENCOUNTER 2023-11-03 02:04 | Emergency (ER) | payer MEDICAID ==
[~2023-11-03] VITALS: Ht 177.8 cm; Wt 72.7 kg
[~2023-11-03 02:04] MED LIST changes: -IBUP-1984 PO
[2023-11-03 02:17] VITALS: BP 111/78; PULSE 100; RESP 18; TEMP 98.6; O2SAT 96
== END 2023-11-03 05:57 | disposition left against medical advice (07) ==
LOC: ER 02:05
DX: M54.2 Cervicalgia (principal); M54.9 Dorsalgia, unspecified; Z53.21 Procedure and treatment not carried out due to patient leaving prior to being seen by health care provider
CPT/HCPCS: 99281

== ENCOUNTER 2023-11-22 11:29 | Emergency (ER) | payer MEDICAID ==
[~2023-11-22] VITALS: Ht 177.8 cm; Wt 86.0 kg
[2023-11-22 11:39] VITALS: TEMP 97.8
[2023-11-22] MEDS ORDERED: NAPR-56 PO (12:59)
[2023-11-22] MEDS: ketorolac tromethamine 15mg/ml inj. IM ONE (14:13)
[2023-11-22 14:22] VITALS: BP 125/82; PULSE 92; RESP 16; O2SAT 98
== END 2023-11-22 14:26 | disposition home or self-care (01) ==
LOC: ER 11:29
DX: S39.012A Strain of muscle, fascia and tendon of lower back, initial encounter (principal); F15.90 Other stimulant use, unspecified, uncomplicated; F12.90 Cannabis use, unspecified, uncomplicated; G43.909 Migraine, unspecified, not intractable, without status migrainosus; F31.9 Bipolar disorder, unspecified; Z88.8 Allergy status to other drugs, medicaments and biological substances; Z79.899 Other long term (current) drug therapy; Z79.1 Long term (current) use of non-steroidal anti-inflammatories (NSAID); Z90.49 Acquired absence of other specified parts of digestive tract; Z90.710 Acquired absence of both cervix and uterus; Y08.89XA Assault by other specified means, initial encounter; Y93.89 Activity, other specified; Y92.89 Other specified places as the place of occurrence of the external cause; Y99.8 Other external cause status
CPT/HCPCS: 96372; 99283; J1885

== ENCOUNTER 2023-12-11 13:51 | Emergency (ER) | payer MEDICAID ==
[~2023-12-11 13:51] MED LIST changes: +NAPR-56 PO
== END 2023-12-11 16:26 | disposition left against medical advice (07) ==
LOC: ER 13:52
DX: G43.909 Migraine, unspecified, not intractable, without status migrainosus (principal); Z53.21 Procedure and treatment not carried out due to patient leaving prior to being seen by health care provider
CPT/HCPCS: 99281